=== PATIENT | male | born 1970 | race Caucasian/White ===

== ENCOUNTER 2023-08-05 11:30 | Emergency (ER) | payer MEDICAID ==
[~2023-08-05] VITALS: Ht 172.7 cm; Wt 81.8 kg
[2023-08-05] MEDS ORDERED: PERTUSS(ACELL),DIPH,TET VAC/PF 0.5 ML SYRINGE IM. ONE (12:15)
[2023-08-05] MEDS ORDERED: LIDOCAINE 1% 10 ML VIAL ID ONE (13:45)
[2023-08-05] MEDS ORDERED: SODIUM CHLORIDE 0.9% 250 ML IRRIG SOLUTION BOTTLE IRRIG ONE (13:45)
[2023-08-05] MEDS ORDERED: CEPHALEXIN MONOHYDRATE 500 MG CAPSULE PO ONE (13:45)
[2023-08-05 14:36] VITALS: BP 134/55; PULSE 66; RESP 16; TEMP 97.9
[2023-08-05] MEDS ORDERED: CEPH-558 PO (14:37)
== END 2023-08-05 15:01 | disposition home or self-care (01) ==
LOC: EMS 11:31
DX: S61.412A Laceration without foreign body of left hand, initial encounter (principal); X58.XXXA Exposure to other specified factors, initial encounter; Y93.89 Activity, other specified; Y92.89 Other specified places as the place of occurrence of the external cause; Y99.8 Other external cause status
CPT/HCPCS: 99283; 90715; 90471; 12002; J3490